=== PATIENT | male | born 1945 | race Caucasian/White ===

== ENCOUNTER 2018-08-04 17:07 | Inpatient (IN) | payer MEDICARE ==
[2018-08-04] MEDS ORDERED: Morphine 4 MG/ML VIAL (1 ml) 4 MG/ML VIAL IV ONE (22:36)
[2018-08-04] MEDS ORDERED: Ondansetron INJ* 2 MG/ML VIAL IV ONE (22:36)
[2018-08-04] MEDS ORDERED: NS 0.9% 1000 ML** 1,000 ML IV ONE (22:36)
--- NOTE | 2018-08-04 22:36 | ED ---
Abdominal Pain/Male - HPI Summary HPI Summary: A 72 y/o male presents to [facility] with a chief complaint of RLQ abdominal pain for the past 3 days. The patient denies constipation, claiming that he has been having diarrhea. He also c/o vomiting. The patient rates his pain as a 2/10 in severity. He notes that his pain worsens with movement and cough. He denies a SHx. He reports that he had a temperature of 100 but that it went back down to 99.4 at triage. - History of Current Complaint Chief Complaint: EDAbdPain Stated Complaint: CAT SCAN AND BLOOD WORK PER PT Time Seen by Provider: 08/04/18 22:21 Hx Obtained From: Patient Onset/Duration: Sudden Onset, Lasting Days, Still Present Timing: Constant, Lasting Days Severity Initially: Moderate Severity Currently: Moderate Pain Intensity: 2 Pain Scale Used: 0-10 Numeric Location: Discrete At: RLQ Radiates: No Character: Other: - unable to describe Aggravating Factor(s): Movement, Other: - cough Alleviating Factor(s): Nothing Associated Signs And Symptoms: Positive: Diarrhea. Negative: Fever, Constipation - Allergies/Home Medications Allergies/Adverse Reactions: Allergies Allergy/AdvReac Type Severity Reaction Status Date / Time miconazole Allergy Mild See Comment Verified 08/05/18 00:35 Home Medications: Home Medications Yovanny Mag Zinc-D3 Tablet 1 tab PO DAILY 08/05/18 [History Confirmed 08/05/18] Latanoprost 0.005%* [Xalatan 0.005%*] 1 drop BOTH EYES QPM 08/05/18 [History Confirmed 08/05/18] Magnesium Chloride EC TAB* [Slow Mag EC TAB*] 64 mg PO DAILY 08/05/18 [History Confirmed 08/05/18] [place]-3/Dha/Epa/Fish Oil [Fish Oil 1,000 mg Softgel] 1,000 mg PO DAILY 08/05/18 [History Confirmed 08/05/18] Vit B Complex 100 Combo No.2 [Balanced B-100] 100 mg PO DAILY 08/05/18 [History Confirmed 08/05/18] PMH/Surg Hx/FS Hx/Imm Hx Sensory History: Denies: Hx Deafness EENT History: Denies: Hx Deafness Infectious Disease History: No Infectious Disease History: Denies: Traveled Outside the [place] in Last 30 Days - Family History Known Family History: Positive: Other - negative: colon cancer - Social History Alcohol Use: None Hx Substance Use: No Substance Use Type: Reports: None Hx Tobacco Use: Yes Smoking Status (MU): Former Smoker Review of Systems Negative: Fever Positive: Abdominal Pain, Vomiting, Diarrhea, Other - negative: constipation All Other Systems Reviewed And Are Negative: Yes Physical Exam - Summary Physical Exam Summary: VITAL SIGNS: Reviewed. GENERAL: Patient is a well-developed and nourished MALE who is lying comfortable in the stretcher. Patient is not in any acute respiratory distress. HEAD AND FACE: No signs of trauma. No ecchymosis, hematomas or skull depressions. No sinus tenderness. EYES: PERRLA, EOMI x 2, No injected conjunctiva, no nystagmus. EARS: Hearing grossly intact. Ear canals and tympanic membranes are within normal limits. MOUTH: Oropharynx within normal limits. NECK: Supple, trachea is midline, no adenopathy, no JVD, no carotid bruit, no c- spine tenderness, neck with full ROM CHEST: Symmetric, no tenderness at palpation LUNGS: Clear to auscultation bilaterally. No wheezing or crackles. CVS: Regular rate and rhythm, S1 and S2 present, no murmurs or gallops appreciated. ABDOMEN: Tenderness over RLQ with rebound. EXTREMITIES: FROM in all major joints, no edema, no cyanosis or clubbing. NEURO: Alert and oriented x 3. No acute neurological deficits. Speech is normal and follows commands. SKIN: Dry and warm Triage Information Reviewed: Yes Vital Signs On Initial Exam: Initial Vitals Temp Pulse Resp BP Pulse Ox 99.4 F 98 20 117/75 98 08/04/18 17:31 08/04/18 17:31 08/04/18 17:31 08/04/18 17:31 08/04/18 17:31 Vital Signs Reviewed: Yes Diagnostics - Vital Signs Vital Signs Temp Pulse Resp BP Pulse Ox 08/04/18 21:53 99.0 F 88 16 130/60 100 08/04/18 19:38 98.3 F 85 16 121/65 98 08/04/18 17:31 99.4 F 98 20 117/75 98 - Laboratory Result Diagrams: 08/04/18 22:43 08/04/18 22:43 Lab Statement: Any lab studies that have been ordered have been reviewed, and results considered in the medical decision making process. - CT abdomen/pelvis CT Interpretation Completed By: Radiologist Summary of CT Findings: 1. The appendix is abnormally dilated measuring up to 17 mm diameter, fluid. filled with wall thickening and significant fat stranding consistent with acute. appendicitis with multiple points of perforation including near the proximal. and mid aspect of the appendix with adjacent periappendiceal air locules. consistent with perforated acute appendicitis without visible discrete abscess. at this time. 2. There is contiguous inflammation of the cecal tip and terminal ileum likely. related to adjacent appendicitis. 3. There is a small hiatal hernia. 4. There is colonic diverticulosis without evidence for acute diverticulitis. ED physician has reviewed this imaging report. Re-Evaluation - Re-Evaluation First Eval Re-Evaluation Time: 00:55 Change: Unchanged Comment: discussed results and plan, Pt still reports pain. Abdominal Pain Male Course/Dx - Course Course Of Treatment: A 72 y/o male presents to [facility] with a chief complaint of RLQ abdominal pain for the past 3 days. The patient denies constipation, claiming that he has been having diarrhea. The physical exam revealed Tenderness over RLQ with rebound. Bloodwork and chemistries obtained. WBC of 16.2. In the ED course the patient was given Morphine IV, Zofran IV, Sodium Chloride IV and Iohexol IV. CT abdomen/pelvis impression: 1. The appendix is abnormally dilated measuring up to 17 mm diameter, fluid. filled with wall thickening and significant fat stranding consistent with acute. appendicitis with multiple points of perforation including near the proximal. and mid aspect of the appendix with adjacent periappendiceal air locules. consistent with perforated acute appendicitis without visible discrete abscess. at this time. 2. There is contiguous inflammation of the cecal tip and terminal ileum likely. related to adjacent appendicitis. 3. There is a small hiatal hernia. 4. There is colonic diverticulosis without evidence for acute diverticulitis. Case discussed with Dr. Suero, surgery, who accepted the patient for admission. - Diagnoses Provider Diagnoses: Acute perforated appendicitis - Provider Notifications Discussed Care Of Patient With: Augustin Suero Time Discussed With Above Provider: 00:51 Instructed by Provider To: Other - will look at CT then decide what to do. At 01 :53 Dr. Suero accepted the patient for admission. Discharge - Sign-Out/Discharge Documenting (check all that apply): Patient Departure - admit Patient Received Moderate/Deep Sedation with Procedure: No - Discharge Plan Condition: Fair Disposition: ADMITTED TO [facility] - Billing Disposition and Condition Condition: FAIR Disposition: Admitted to [facility] - Attestation Statements Document Initiated by Keron: Yes Documenting Scribe: Chriss Santizo Provider For Whom Keron is Documenting (Include Credential): Carly Ross MD Scribe Attestation: IChriss, scribed for Carly Ross MD on 08/05/18 at 0548. Scribe Documentation Reviewed: Yes Provider Attestation: The documentation as recorded by the Chriss connelly accurately reflects the service I personally performed and the decisions made by me, Carly Ross MD Status of Scribe Document: Viewed
[2018-08-04 22:52] LABS: Hematocrit 45 % (42-52); Hemoglobin 14.9 g/dL (14.0-18.0); Mean Corpuscular HGB Conc 33 g/dL (31-36); Mean Corpuscular Hemoglobin 31 pg (27-31); Mean Corpuscular Volume 94 fL (80-94); Mean Platelet Volume 7.9 fL (7.4-10.4); Platelet Count 245 10^3/uL (150-450); Red Blood Count 4.74 10^6 /uL (4.18-5.48); Red Cell Distribution Width 13 % (10-15); White Blood Count 16.2 10^3/uL (3.5-10.8)
[2018-08-04 23:01] LABS: Activated Partial Thrombo Time 27.4 seconds (26.0-38.0); INR 1.28 (0.82-1.09)
[2018-08-04 23:09] LABS: Albumin 4.2 g/dL (3.2-5.2); Albumin/Globulin Ratio 1.3 (1-3); BUN/Creatinine Ratio 18.6 (8-20); C Reactive Protein 316.98 mg/L (<8.01); Calcium 9.7 mg/dL (8.6-10.3); EGFR Non-African American 63.6 (>60); Globulin 3.3 g/dL (2-4); Potassium 3.6 mmol/L (3.5-5.0); Total Bilirubin 1.5 mg/dL (0.2-1.0); Total Protein 7.5 g/dL (6.4-8.9)
[2018-08-04 23:16] LABS: ABS Eosinophils 0.1 10^3/ul (0-0.6); ABS Lymphocytes 1.2 10^3/ul (1.0-4.8); ABS Monocytes 1.7 10^3/ul (0-0.8); ABS Neutrophils 13.2 10^3/ul (1.5-7.7); Eosinophil % 0.4 %; Lymphocyte % 7.3 %
[2018-08-04] MEDS ORDERED: Iohexol 300* (CONTRAST) 10 ML SDV IV ONE (23:30)
[2018-08-05] MEDS ORDERED: Levofloxacin 500 MG IVPREMIX(* 500 MG/100 ML BAG IVPB ONE (00:46)
[2018-08-05] MEDS ORDERED: metroNIDAZOLE IV 500 MG/100ML* 500 MG/100 ML BAG IVPB ONE (00:47)
[2018-08-05] MEDS ORDERED: Piperacillin/Tazobac ADVAN(*) 3.375 GM in NS 0.9% 100 ML* 100 ML IVPB ONE (01:28)
[2018-08-05] MEDS: HYDROmorphone INJ1* 1 MG/ML SYRINGE IV SLOW PU PRN ×2 (02:27→05:28)
[2018-08-05] MEDS ORDERED: HYDROmorphone INJ1* 1 MG/ML SYRINGE IV SLOW PU PRN (03:02)
[2018-08-05] MEDS ORDERED: Ondansetron INJ* 2 MG/ML VIAL IV PRN (03:06)
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
[2018-08-05] MEDS: NS 0.9% 1000 ML** 1,000 ML IV SCH ×3 (04:11→19:51)
[2018-08-05] MEDS: Piperacillin/Tazobactam VIAL*) 3.375 GM in NS 0.9% 100 ML* 100 ML IVPB SCH ×3 (05:27→21:31)
[2018-08-05] MEDS ORDERED: Buffered Lidocaine 1% SYRIN* 1 ML/SYRINGE INTRADERM ONE (06:20)
[2018-08-05] MEDS ORDERED: DiMENhydriNATE IV* 50 MG/ML VIAL IV PUSH PRN (06:20)
[2018-08-05] MEDS ORDERED: oxyCODONE TAB* 5 MG TAB PO PRN (06:20)
[2018-08-05] MEDS ORDERED: Naloxone* 0.4 MG/ML 1 ML VIAL IV PRN (06:20)
[2018-08-05] MEDS ORDERED: Acetaminophen IV 1GM/100ML * 1,000 MG/100 ML VIAL IVPB ONE (06:20)
[2018-08-05] MEDS ORDERED: fentaNYL* 50 MCG/ML 2 ML VIAL (100 MCG VIAL) IV PRN (06:20)
[2018-08-05] MEDS ORDERED: Propofol* 10 MG/ML 20 ML BTL ONE (06:28)
[2018-08-05] MEDS ORDERED: Rocuronium* 10 MG/ML VIAL ONE (06:29)
[2018-08-05] MEDS ORDERED: Lidocaine 2% PF * 5 ML VIAL ONE (06:29)
[2018-08-05] MEDS ORDERED: Bupivacaine 0.25% W/EPI* 10 ML SDV ONE (06:32)
[2018-08-05] MEDS ORDERED: fentaNYL* 50 MCG/ML 2 ML VIAL (100 MCG VIAL) ONE (06:32)
[2018-08-05] MEDS ORDERED: Midazolam* 1 MG/ML 2 ML VIAL (2 MG) ONE (06:32)
[2018-08-05] MEDS ORDERED: Lactated Ringers 1000 ML Bag* 1,000 ML IV SCH (07:00)
[2018-08-05] MEDS ORDERED: Metoclopramide IV* 5 MG/ML 2 ML VIAL ONE (07:46)
[2018-08-05] MEDS ORDERED: Dexamethasone IV* 4 MG/ML 1 ML (4 MG) ONE (07:46)
[2018-08-05] MEDS ORDERED: Ondansetron INJ* 2 MG/ML VIAL ONE (07:46)
[2018-08-05] MEDS ORDERED: Ketorolac INJ* 30 MG/ML 1 ML VIAL ONE (07:46)
[2018-08-05] MEDS ORDERED: Glycopyrrolate IV* 0.2 MG/ML 1 ML VIAL ONE (08:34)
[2018-08-05] MEDS ORDERED: Neostigmine Methylsulfate* 1 MG/ML 10 ML VIAL (1 mg/ml) ONE (08:34)
[2018-08-05] MEDS ORDERED: HYDROmorphone INJ1* 1 MG/ML SYRINGE ONE ×2 (08:48→09:42)
[2018-08-05] MEDS ORDERED: Acetaminophen IV 1GM/100ML * 100 ML ONE (09:42)
[2018-08-05] MEDS: HYDROmorphone INJ1* 1 MG/ML SYRINGE IV PRN ×2 (09:46→10:00)
--- NOTE | 2018-08-05 13:14 | OP ---
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 ANESTHESIOLOGIST: Nora James DO ANESTHESIA: General endotracheal. PRE-OP DIAGNOSIS: Perforated appendicitis. POST-OP DIAGNOSES: 1. Perforated appendicitis. 2. Umbilical hernia. OPERATIVE PROCEDURE: Laparoscopic appendectomy with drain placement, open umbilical hernia repair. ESTIMATED BLOOD LOSS: 50 mL. IV FLUIDS: 1 L of crystalloid. SPECIMENS: Appendix. DRAINS: 7 mm Lazaro-Avila. COMPLICATIONS: None. COUNTS: The instrument, needle, and sponge counts were correct. DESCRIPTION OF PROCEDURE: The patient was brought to the operating room and placed on the table supine. Sequential compression devices were placed in both lower extremities. General anesthesia was administered. The abdomen was prepped and draped in the usual sterile fashion. A time-out was performed. Local anesthetic was infiltrated into the skin and soft tissues prior to making each incision. Entry into the abdomen was through an infraumbilical curvilinear incision using an open technique. After accessing the peritoneal cavity, carbon dioxide was insufflated through a 12 mm trocar to a pressure of 15 mmHg. Under direct visualization, 5 mm trocars were placed in the lower midline and also in the left lower quadrant. The patient was noted to have a mass in the right lower quadrant that was adherent to the anterior abdominal wall and this appeared to be a mass of omentum and inflamed cecum and terminal ileum. This was dissected free of the abdominal wall and in doing so, abscess was encountered and purulent fluid was drained and ultimately in order to completely free the surrounding structures from the appendix, mobilization of the cecum was performed bluntly, mobilizing this toward the midline. The appendix was identified as being a gangrenous and perforated structure and there was a fecalith present in the base with a ligature of the appendix, mesentery was divided and the appendix was placed to endoscopic retrieval bag. The appendix was essentially necrotic all the way down to the cecum. The fecalith was retrieved separately. The base of the appendix did not accommodate any stapler and ultimately it was decided that suture closure would be performed using two 2-0 silk sutures, this was achieved and then a tongue of omentum was brought over this area and incorporated into the sutures in order to buttress this repair. Copious lavage was performed until clear. A 10 mm Lazaro- Avila drain was placed into the peritoneal cavity and removed through the supraumbilical site. It was positioned in the area of the right lower quadrant, extending toward the pelvis. This drain was sutured to skin with 3-0 Prolene and placed the suction bulb. The port removed and carbon dioxide was released. The patient's umbilical hernia was dissected circumferentially till the edges were identified and the stalk was completely from the anterior abdominal wall. The repair was performed with 0 Vicryl in interrupted [id number] fashion and then the stalk of the umbilicus reapproximated to the anterior fascia with a 3-0 Vicryl. The skin incisions were closed with 4-0 Monocryl in subcuticular fashion. DermaFlex was applied. Drain dressings were applied to the suprapubic drain site. The patient tolerated the procedure well, was extubated uneventfully and transferred to recovery in stable condition. [id number]/[facility] #: [id number] [place]
[2018-08-05] MEDS: Latanoprost 0.005%* 2.5 ml BTL BOTH EYES SCH (17:39)
[2018-08-06] MEDS: NS 0.9% 1000 ML** 1,000 ML IV SCH (03:37)
[2018-08-06] MEDS: HYDROmorphone INJ1* 1 MG/ML SYRINGE IV SLOW PU PRN (03:50)
[2018-08-06] MEDS: Piperacillin/Tazobactam VIAL*) 3.375 GM in NS 0.9% 100 ML* 100 ML IVPB SCH ×3 (05:20→21:27)
--- NOTE | 2018-08-06 11:32 | PN ---
Progress Note - Progress Note Date of Service: 08/06/18 SOAP: Subjective: Pt seen and examined. Feels well. Hungry. some flatus Objective: Temp Pulse Resp BP Pulse Ox 97.3 F 71 18 125/70 96 08/06/18 11:27 08/06/18 11:27 08/06/18 11:27 08/06/18 11:27 08/06/18 11:27 Intake & Output 08/05/18 08/06/18 08/06/18 22:59 06:59 14:59 Intake Total 1139 1065 Output Total 55 1080 350 Balance 1084 -15 -350 a and o x3, nad abdo: soft: ND/ NT AP serous ext wnl Assessment: POD 1 lap appy- perforated Plan: DOing well advance diet AP teaching abx d/c planning
[2018-08-06] MEDS: D5W 1/2 NS KCl 20 Meq 1000 ML* 1,000 ML IV SCH (11:48)
[2018-08-06] MEDS: Heparin VIAL(*) 5000 UNITS/ML VIAL (FIVE THOUSAND) SUBCUT SCH ×2 (13:41→21:27)
[2018-08-06] MEDS: Latanoprost 0.005%* 2.5 ml BTL BOTH EYES SCH (17:51)
[2018-08-07] MEDS: D5W 1/2 NS KCl 20 Meq 1000 ML* 1,000 ML IV SCH (01:06)
[2018-08-07] MEDS: Heparin VIAL(*) 5000 UNITS/ML VIAL (FIVE THOUSAND) SUBCUT SCH (05:27)
[2018-08-07] MEDS: Piperacillin/Tazobactam VIAL*) 3.375 GM in NS 0.9% 100 ML* 100 ML IVPB SCH (05:28)
[2018-08-07 07:38] VITALS: BP 140/73
--- NOTE | 2018-08-07 09:55 | PN ---
Progress Note - Progress Note Date of Service: 08/07/18 SOAP: Subjective: Pt seen and examined. tolerated diet. continued flatus. Objective: AF VSS a and o x3, nad abdo: soft: ND/ NT AP serous ext wnl Assessment: POD 2 lap appy- perforated Plan: DOing well advance diet AP teaching abx d/c home
--- NOTE | 2018-08-09 13:14 | DS ---
CC: Kenton Kirk DO DISCHARGE SUMMARY: DATE OF ADMISSION: 08/05/18 DATE OF DISCHARGE: 08/07/18 DISCHARGE DIAGNOSES: 1. Perforated appendicitis. 2. Glaucoma. 3. Coronary artery stenosis. 4. Hiatal hernia. 5. Gastroesophageal reflux disease. 6. Obstructive sleep apnea. PROCEDURE: Laparoscopic appendectomy and umbilical hernia repair on 08/05/18. HOSPITAL COURSE: Mr. Schuler is a 72-year-old gentleman who presented to [facility] Room for evaluation of abdominal pain. He had been sent from primary care provider's office an d underwent CT scan, which demonstrated perforated appendicitis. He was admitted on 08/05/18 and annamarie en to the operating room. Please refer to the operative report for full details. Postoperatively, t he patient did well, progressed in his diet to clear liquids on postoperative day 1, was able to bolye sition from IV to oral medications to control his pain and was passing some flatus. A AP drain that had been placed at the time of surgery was left in place as he was able to tolerate his diet by posto perative day 2 and was able to transition to oral medications. He was transitioned from IV antibioti cs to oral antibiotics and discharged home on 08/07/18. He was in stable condition. DISCHARGE MEDICATIONS: 1. Augmentin 875 mg p.o. b.i.d. 2. Percocet 5/325 one p.o. q.4 hours p.r.n. 3. He was instructed to continue his vitamin C 500 mg p.o. daily. 4. Lotrimin 1% topical as previously prescribed. 5. Baby aspirin once daily. 6. Xalatan 0.005% eyedrops 1 to both eyes at bedtime. 7. Fish oil 1000 mg daily. 8. Slow-Mag EC 64 mg p.o. daily. 9. Balance B-100, 100 mg oral every day. 10. Calcium, zinc, magnesium, D3 tablet 1 oral daily. He had no test pending. His pathology report was pending at the time of discharge. [id number]/[facility] #: [id number]
== END 2018-08-07 12:10 | disposition home or self-care (01) | DRG 340 ==
LOC: ED 17:07 → SSU 08-05 02:00
PROVIDERS: ADMIT Surgery; ATTEND Surgery
PROC: 0WJG4ZZ Inspection of Peritoneal Cavity, Percutaneous Endoscopic Approach (ICD-10-PCS; 2018-08-05)
PROC: 0WQF4ZZ Repair Abdominal Wall, Percutaneous Endoscopic Approach (ICD-10-PCS; 2018-08-05)
PROC: 0DTJ0ZZ Resection of Appendix, Open Approach (ICD-10-PCS; principal; 2018-08-05 07:00)
DX: K35.33 Acute appendicitis with perforation, localized peritonitis, and gangrene, with abscess (principal); K42.9 Umbilical hernia without obstruction or gangrene; H40.9 Unspecified glaucoma; I65.29 Occlusion and stenosis of unspecified carotid artery; K44.9 Diaphragmatic hernia without obstruction or gangrene; K21.9 Gastro-esophageal reflux disease without esophagitis; G47.33 Obstructive sleep apnea (adult) (pediatric); N40.0 Benign prostatic hyperplasia without lower urinary tract symptoms; M19.90 Unspecified osteoarthritis, unspecified site; Z79.82 Long term (current) use of aspirin; Z79.899 Other long term (current) drug therapy; Z88.8 Allergy status to other drugs, medicaments and biological substances; Z87.891 Personal history of nicotine dependence
CPT/HCPCS: 36415; 74177; 80053; 82150; 83605; 83690; 83735; 85025; 85610; 85730; 86140; 87040; 88304; 99284; J1100; J1170; J1644; J1885; J2250; J2270; J2405; J2543; J2704; J2710; J2765; J3010; Q9967